=== PATIENT | female | born 1955 | race Caucasian/White ===

== ENCOUNTER 2017-05-16 11:05 | Emergency (ER) | payer BC ==
[~2017-05-16] VITALS: Ht 167.6 cm; Wt 90.2 kg
[~2017-05-16 11:05] MED LIST: CALCTAB7 PO; LEVO50TA PO; MULTTAB58 PO
[2017-05-16 11:08] VITALS: TEMP 36.8; Ht 167.6 cm; Wt 90.2 kg
--- NOTE | 2017-05-16 11:30 | EMERGENCY ROOM VISIT NOTE ---
ED Visit Note First contact with patient: 11:09 CHIEF COMPLAINT: Left wrist pain/swelling x3 days HISTORY OF PRESENT ILLNESS: This 62-year-old female patient presents to the emergency department complaining of pain in the left wrist wrist for 3 days. Patient states she was recently in the [place], staying in an orphanage, for a missions trip. Patient states she was there for 9 days, and returned at approximately 3 AM this morning. Patient states for 3 days, she has been experiencing swelling and soreness on the lateral aspect of her wrist. She denies known specific injury, however states she was recently swimming in a pool with multiple kids, and lifting and throwing them around in the pool. The patient is able to move their wrist, however she states flexion of the wrist makes it worse. She does have point tenderness on the lateral aspect of the wrist. The patient states the pain is dull and achy and 5/10 at its worst. No laceration, no weakness. No numbness or tingling. The patient denies any other injury. The patient is able to move their fingers and elbow without difficulty. The patient has not had a previous fracture to this wrist. The patient has taken no medication or ice for the pain. Patient denies any other symptoms including fever, body aches, chills, nausea, vomiting, lethargy, dyspnea, chest discomfort. REVIEW OF SYSTEMS: A 6 system review of systems was performed with positives and pertinent negatives in the HPI. ALLERGIES: None MEDICATIONS: Synthroid, multivitamin PMH: Hypothyroidism SOCIAL HISTORY: Patient lives locally with her family. She denies tobacco or drug use. She does report occasional alcohol use. PHYSICAL EXAM: Vital Signs: Reviewed Nurse's notes, vital signs stable. GENERAL : 62-year-old female, in no acute distress, well-developed, well-nourished. NEURO: Alert and oriented to person place and time. Normal sensation to light and sharp touch. MUSCULOSKELETAL: There is no deformity of the left wrist. There is tenderness and edema over lateral aspect of the left wrist. There is no snuff box tenderness. Range of motion is full. There is no tenderness of the elbow, hand or fingers. Light Industrial strength 5/5. Radial pulse 2+. SKIN: Normal and intact. The hand is warm and well perfused with capillary refill less than 2 seconds. EMERGENCY DEPARTMENT COURSE: I examined the patient. An X-ray of the left wrist was reviewed by myself and radiologist and showed: FINDINGS: Alignment of left wrist is anatomic. No fracture or suspicious lesion is identified. Joint spaces are preserved. IMPRESSION: No significant abnormality of the left wrist. Labs ordered to r/o lyme disease due to normal xray and unknown injury. Labs negative for Lyme disease, normal WBC. A wrist lacer splint was placed under my direction and the position was satisfactory. Neurovascular status rechecked and intact. The patient was discharged home in good condition. DIAGNOSIS: Left wrist sprain DIFFERENTIAL DIAGNOSIS: Wrist sprain, distal radial fracture, wrist fracture, lyme disease, cellulitis, and others. DISCHARGE INSTRUCTIONS & TREATMENT: Wear the wrist splint for 4 - 5 days until the pain subsides. Ice and keep the wrist elevated for 24-48 hrs. Ibuprofen 600mg and Tylenol 1000 mg every 6 hours if needed for the pain. You may alternate these medications every 3-4 hours if needed. Follow up with your family doctor or orthopedic surgeon if symptoms persist in 5 -7 days. Return to the ED for worsening symptoms including increased swelling, redness, numbness or tingling in the hand or fingers. Current/Historical Medications Scheduled Calcium Carbonate-Vitamin D W/ (Caltrate 600 Plus), 1 TAB PO DAILY Levothyroxine Sodium (Synthroid), 50 MCG PO DAILY Multiple Vitamin (Multivitamin), 1 TAB PO DAILY Allergies Coded Allergies: No Known Allergies (Unverified , 05/16/17) Vital Signs Date Time Temp Pulse Resp B/P (MAP) Pulse Ox O2 Delivery O2 Flow Rate FiO2 05/16/17 14:36 68 18 138/86 96 05/16/17 11:08 36.8 72 18 134/86 96 Room Air Laboratory Results 05/16/17 12:10 Red Blood Count 4.58, Mean Corpuscular Volume 93.2, Mean Corpuscular Hemoglobin 30.3, Mean Corpuscular Hemoglobin Concent 32.6, Mean Platelet Volume 9.0, Neutrophils (%) (Auto) 64.8, Lymphocytes (%) (Auto) 26.3, Monocytes (%) (Auto) 6.7, Eosinophils (%) (Auto) 1.5, Basophils (%) (Auto) 0.6, Neutrophils # (Auto) 4.63, Lymphocytes # (Auto) 1.88, Monocytes # (Auto) 0.48, Eosinophils # (Auto) 0.11, Basophils # (Auto) 0.04 05/16/17 12:10 Test 05/16/17 12:10 White Blood Count 7.15 K/uL (4.8-10.8) Red Blood Count 4.58 M/uL (4.2-5.4) Hemoglobin 13.9 g/dL (12.0-16.0) Hematocrit 42.7 % (37-47) Mean Corpuscular Volume 93.2 fL (80-100) Mean Corpuscular Hemoglobin 30.3 pg (25-34) Mean Corpuscular Hemoglobin Concent 32.6 g/dl (32-36) Platelet Count 351 K/uL (130-400) Mean Platelet Volume 9.0 fL (7.4-10.4) Neutrophils (%) (Auto) 64.8 % Lymphocytes (%) (Auto) 26.3 % Monocytes (%) (Auto) 6.7 % Eosinophils (%) (Auto) 1.5 % Basophils (%) (Auto) 0.6 % Neutrophils # (Auto) 4.63 K/uL (1.4-6.5) Lymphocytes # (Auto) 1.88 K/uL (1.2-3.4) Monocytes # (Auto) 0.48 K/uL (0.11-0.59) Eosinophils # (Auto) 0.11 K/uL (0-0.5) Basophils # (Auto) 0.04 K/uL (0-0.2) RDW Standard Deviation 42.7 fL (36.4-46.3) RDW Coefficient of Variation 12.5 % (11.5-14.5) Immature Granulocyte % (Auto) 0.1 % Immature Granulocyte # (Auto) 0.01 K/uL (0.00-0.02) Anion Gap 8.0 mmol/L (3-11) Est Creatinine Clear Calc Drug Dose 76.8 ml/min Estimated GFR () 83.3 Estimated GFR (Non- 71.9 BUN/Creatinine Ratio 18.4 (10-20) Calcium Level 9.4 mg/dl (8.5-10.1) Lyme Disease IgG Antibody NEG (NEG) Lyme Disease IgM Antibody NEG (NEG) Departure Information Impression Primary Impression: Left wrist sprain Dispostion Home / Self-Care Condition GOOD Referrals No Doctor, Assigned (PCP) Bakari Awan M.D. Patient Instructions ED Sprain Wrist, My [facility] Additional Instructions Wear the wrist splint for 4 - 5 days until the pain subsides. Ice and keep the wrist elevated for 24-48 hrs. Ibuprofen 600mg and Tylenol 1000 mg every 6 hours if needed for the pain. Do not exceed 3200mg ibuprofen or 4000mg Tylenol (acetaminophen) in 24 hours. You may alternate these medications every 3-4 hours if needed. Follow up with your family doctor or orthopedic surgeon if symptoms persist in 5 -7 days. Return to the ED for worsening symptoms including increased swelling, redness, numbness or tingling in the hand or fingers. Problem Qualifiers Primary Impression: Left wrist sprain Encounter type: initial encounter Qualified Codes: S63.502A - Unspecified sprain of left wrist, initial encounter
--- NOTE | 2017-05-16 11:59 | DIAGNOSTIC IMAGING REPORT ---
LEFT WRIST W/NAVICULAR MIN 3 VIEWS CLINICAL HISTORY: Lateral left wrist pain and swelling. COMPARISON: None FINDINGS: Alignment of left wrist is anatomic. No fracture or suspicious lesion is identified. Joint spaces are preserved. IMPRESSION: No significant abnormality of the left wrist. Electronically signed by: Amandeep Bain M.D. 05/16/2017 11:58 AM Dictated Date/Time: 05/16/2017 11:57 AM
[2017-05-16 12:32] LABS: BASO % 0.6 %; BASO ABS # 0.04 K/uL (0-0.2); COMPLETE YES; EOS % 1.5 %; HEMATOCRIT 42.7 % (37-47); IG% 0.1 %; LYMPH % 26.3 %; LYMPH ABS # 1.88 K/uL (1.2-3.4); MEAN CELL VOLUME 93.2 fL (80-100); MEAN CORPUSCULAR HEMOGLOBIN 30.3 pg (25-34); MEAN CORPUSCULAR HGB CONC 32.6 g/dl (32-36); MONO % 6.7 %; NEUT % 64.8 %; PLATELET COUNT 351 K/uL (130-400); RED BLOOD COUNT 4.58 M/uL (4.2-5.4); WHITE BLOOD COUNT 7.15 K/uL (4.8-10.8)
[2017-05-16 12:50] LABS: BUN/CREATININE RATIO 18.4 (10-20); CALCIUM 9.4 mg/dl (8.5-10.1); CREATININE 0.87 mg/dl (0.60-1.20); POTASSIUM 4.3 mmol/L (3.5-5.1)
[2017-05-16 13:37] LABS: LYME DISEASE AB IGG NEG (NEG)
[2017-05-16 13:41] LABS: LYME DISEASE AB IGM NEG (NEG)
[2017-05-16 14:36] VITALS: BP 138/86; PULSE 68; O2SAT 96
== END 2017-05-16 14:36 | disposition home or self-care (01) ==
LOC: C.EDB 11:06 → C.EDD 14:36
DX: S63.502A Unspecified sprain of left wrist, initial encounter (principal); E03.9 Hypothyroidism, unspecified; X58.XXXA Exposure to other specified factors, initial encounter

== ENCOUNTER → 2017-05-31 | Outpatient (CLI) | payer BC ==
--- NOTE | 2017-06-04 07:29 | MAMMOGRAPHY REPORT ---
BILATERAL DIGITAL SCREENING MAMMOGRAM WITH CAD: 05/31/2017 CLINICAL HISTORY: Routine screening. Patient has no complaints. TECHNIQUE: Current study was also evaluated with a Computer Aided Detection (CAD) system. Bilateral CC and MLO and right cleavage views were obtained. COMPARISON: Comparison is made to exams dated: 05/30/2016 mammogram, 05/10/2015 mammogram, 05/06/2014 m ammogram, 04/09/2013 mammogram, 04/08/2012 mammogram, and 04/05/2011 mammogram - [facility] enter. BREAST COMPOSITION: There are scattered areas of fibroglandular density in both breasts. FINDINGS: No suspicious masses, calcifications, or areas of architectural distortion are noted in ei ther breast. There has been no significant interval change compared to prior exams. Benign intramamm mai lymph nodes are again seen within bilateral upper outer quadrants. IMPRESSION: ACR BI-RADS CATEGORY 2: BENIGN There is no mammographic evidence of malignancy. A 1 year screening mammogram is recommended. The pa tient will receive written notification of the results. Approximately 10% of breast cancers are not detected with mammography. A negative mammographic report should not delay biopsy if a clinically suggestive mass is present. Sylvie Eller M.D. /:05/31/2017 12:30:42 Manager Secondary: Lucila ALTAMIRANO(Damir)(Asif)(WALDO), [facility] letter sent: Normal 1/2 BI-RADS Code: ACR BI-RADS Category 2: Benign
== END | disposition home or self-care (01) ==
LOC: C.MAMM 09:48
PROVIDERS: ATTEND Obstetrics & Gynecology
DX: Z12.31 Encounter for screening mammogram for malignant neoplasm of breast (principal)

== ENCOUNTER → 2018-07-02 | Outpatient (CLI) | payer BC | END | disposition home or self-care (01) | LOC: C.RDSM 09:47 | PROVIDERS: ATTEND Orthopaedic Surgery | DX: M25.532 Pain in left wrist (principal) ==